=== PATIENT | female | born 1985 | race Caucasian/White ===

== ENCOUNTER 2021-02-23 08:46 | Outpatient (CLI) | payer BC | END 2021-02-23 09:18 | disposition home or self-care (01) | LOC: TOM 08:46 | PROVIDERS: ATTEND Obstetrics & Gynecology | DX: K59.09 Other constipation (principal); N83.292 Other ovarian cyst, left side; R10.2 Pelvic and perineal pain; N80.0 Endometriosis of uterus ==

== ENCOUNTER 2021-03-02 08:49 | Outpatient (CLI) | payer OTHER | END 2021-03-02 09:07 | disposition home or self-care (01) | LOC: MAMO-SONO 08:49 | PROVIDERS: ATTEND Obstetrics & Gynecology | DX: N83.292 Other ovarian cyst, left side (principal); R10.2 Pelvic and perineal pain; Z12.31 Encounter for screening mammogram for malignant neoplasm of breast; N60.11 Diffuse cystic mastopathy of right breast; N60.12 Diffuse cystic mastopathy of left breast; N64.89 Other specified disorders of breast; R92.1 Mammographic calcification found on diagnostic imaging of breast; R92.0 Mammographic microcalcification found on diagnostic imaging of breast ==